=== PATIENT | female | born 1980 | race African-American/Black ===

== ENCOUNTER 2018-03-31 16:15 | Emergency (ER) | payer BC ==
[2018-03-31 18:55] LABS: EGFR Non-African American 57.1 (>60)
--- NOTE | 2018-03-31 19:41 | ED ---
- HPI Summary HPI Summary: This is scrcherie Angelika Segura documenting for attending physician José Miguel Flores M.D. Pt is a 38 y/o female sent by Dr. Anaya who presents to [facility] c/o LLQ pain due to ectopic . She states she was diagnosed with an ectopic , about 5.5 weeks along, 3 days ago. Pt presented with spotting, and states she still has some intermittent spotting. A transvaginal sonogram was performed, and pt was told to follow up with Dr. Anaya yesterday. She was sent here to get an IM injection for the ectopic . The pain is rated a 2/10 in severity and is described as dull. [facility] 02/17/18. PMHx and FHx of fibroids. A0. - History of Current Complaint Chief Complaint: EDOBProblems Stated Complaint: OB PROBLEM Time Seen by Provider: 03/31/18 19:14 Hx Obtained From: Patient Chief Complaint: Pain, Vaginal Bleeding Onset/Duration: Started Days Ago - 3, Still Present Timing: Intermittent Current Severity: Mild Pain Intensity: 2 Location of Pain: Left Side - LLQ Character: Dull Aggravating Factors: Nothing Alleviating Factors: Nothing Associated Signs and Symptoms: Positive: Vaginal Bleeding or Discharge - Allergies/Home Medications Allergies/Adverse Reactions: Allergies Allergy/AdvReac Type Severity Reaction Status Date / Time Penicillins Allergy Hives Verified 03/31/18 16:22 Home Medications: Home Medications NK [No Home Medications Reported] 03/31/18 [History Confirmed 03/31/18] PMH/Surg Hx/FS Hx/Imm Hx Cardiovascular History: Denies: Hx Hypertension History: Reports: Other Problems/Disorders - Fibroids Infectious Disease History: No Infectious Disease History: Reports: Traveled Outside the [place] in Last 30 Days - Family History Known Family History: Positive: Other - Fibroids - Social History Alcohol Use: Occasionally Hx Tobacco Use: No Smoking Status (MU): Never Smoked Tobacco Review of Systems Positive: Abdominal Pain - LLQ Positive: other - Vaginal spotting All Other Systems Reviewed And Are Negative: Yes Physical Exam - Summary Physical Exam Summary: VITAL SIGNS: Reviewed. GENERAL: Patient is a well-developed and nourished FEMALE who is lying comfortable in the stretcher. Patient is not in any acute respiratory distress. HEAD AND FACE: No signs of trauma. No ecchymosis, hematomas or skull depressions. No sinus tenderness. EYES: PERRLA, EOMI x 2, No injected conjunctiva, no nystagmus. EARS: Hearing grossly intact. Ear canals and tympanic membranes are within normal limits. MOUTH: Oropharynx within normal limits. NECK: Supple, trachea is midline, no adenopathy, no JVD, no carotid bruit, no c- spine tenderness, neck with full ROM. CHEST: Symmetric, no tenderness at palpation LUNGS: Clear to auscultation bilaterally. No wheezing or crackles. CVS: Regular rate and rhythm, S1 and S2 present, no murmurs or gallops appreciated. ABDOMEN: Soft, non-tender. No signs of distention. No rebound no guarding, and no masses palpated. Bowel sounds are normal. EXTREMITIES: FROM in all major joints, no edema, no cyanosis or clubbing. NEURO: Alert and oriented x 3. No acute neurological deficits. Speech is normal and follows commands. SKIN: Dry and warm - Physical Exam Triage Information Reviewed: Yes Vital Signs Reviewed: Yes Diagnostics - Vital Signs Vital Signs Temp Pulse Resp BP Pulse Ox 03/31/18 18:11 98.9 F 80 16 118/69 100 03/31/18 16:17 100.4 F 98 17 140/83 98 - Laboratory Lab Results: Lab Results 03/31/18 03/31/18 Range/Units 18:26 18:26 Sodium 140 (135-145) mmol/L Potassium 4.2 (3.5-5.0) mmol/L Chloride 108 (101-111) mmol/L Carbon Dioxide 26 (22-32) mmol/L Anion Gap 6 (2-11) mmol/L BUN 8 (6-24) mg/dL Creatinine 1.08 H (0.51-0.95) mg/dL Est GFR ( Amer) 69.1 (>60) Est GFR (Non-Af Amer) 57.1 (>60) BUN/Creatinine Ratio 7.4 L (8-20) Glucose 116 H (70-100) mg/dL Calcium 9.1 (8.6-10.3) mg/dL Total Bilirubin 0.20 (0.2-1.0) mg/dL AST 29 (13-39) U/L ALT 13 (7-52) U/L Alkaline Phosphatase 45 (34-104) U/L C-Reactive Protein < 1.00 (<8.01) mg/L Total Protein 7.4 (6.4-8.9) g/dL Albumin 4.2 (3.2-5.2) g/dL Globulin 3.2 (2-4) g/dL Albumin/Globulin Ratio 1.3 (1-3) Beta HCG, Quant 194.29 mIU/mL Blood Type AB Positive Result Diagrams: 03/31/18 18:26 Lab Statement: Any lab studies that have been ordered have been reviewed, and results considered in the medical decision making process. Re-Evaluation - Re-Evaluation First Eval Re-Evaluation Time: 21:05 Change: Unchanged Comment: Pt is worried about the IM side effects, and decided to not get the shot. Course/Dx - Course Course Of Treatment: Pt is a 38 y/o female sent by Dr. Anaya who presents to [facility] c/o LLQ pain due to ectopic . She was diagnosed with an ectopic 3 days ago, presenting with spotting. A transvaginal sonogram was performed. She was sent here to get an IM injection for the ectopic . [facility] 02/17/18. A0. A physical exam was normal. A consult with metalizing supervisorbrittany Streeter revealed the pt has a .7 cm sack in the left adnexa, and advised to administer Methotrexate IM. A re-eval at 21:05 showed the pt worried about the side effects, and she decided to not have the shot. In a consult with the metalizing supervisor afterwards, she advised the pt be discharged and follow up with scheduled bloodwork. Final dx is left ectopic . Pt will be discharged and is agreeable with this plan. - Diagnoses Provider Diagnoses: Ectopic without intrauterine - Provider Notifications Discussed Care Of Patient With: Shandra Mcdermott Time Discussed With Above Provider: 20:47 Instructed by Provider To: Other - Dr. Mcdermott will have the metalizing supervisor the pt saw earlier today call. At 20:56 spoke with metalizing supervisor Sneha Streeter, who said she saw the pt earlier today. She states pt has a .7 cm sack in the left adnexa , and would like the pt to receive Methotrexate IM. At 21:09 spoke to Sneha Streeter again. Informed metalizing supervisor that pt changed her mind about the IM due to side effects. Dermatology Teacher said to discharge pt and to keep scheduled bloodwork. Discharge - Sign-Out/Discharge Documenting (check all that apply): Patient Departure - Discharge - Discharge Plan Condition: Stable Disposition: HOME Patient Education Materials: Ectopic (DC) Referrals: Inocente Anaya MD [Medical Doctor] - 2 Days Additional Instructions: Follow up with [facility] as instructed by them. RETURN TO THE EMERGENCY DEPARTMENT FOR CHANGING OR WORSENING SYMPTOMS
[2018-03-31] MEDS ORDERED: Methotrexate* 25 MG/ML 4 ML VIAL IM ONE (21:01)
[2018-03-31 21:40] VITALS: BP 99/65
== END 2018-03-31 21:37 | disposition home or self-care (01) ==
LOC: ED 16:15
DX: O00.90 Unspecified ectopic pregnancy without intrauterine pregnancy (principal); Z88.0 Allergy status to penicillin
CPT/HCPCS: 36415; 80053; 84702; 86140; 86900; 86901; 99282; J9260